=== PATIENT | female | born 1990 | race Caucasian/White ===

== ENCOUNTER → 2020-01-02 10:25 | Outpatient (CLI) | payer BC, SELFPAY ==
[2020-01-02 10:36] LABS: Bacteria Urine None Seen
[2020-01-02 11:19] LABS: Appearance Urine UA CLEAR; Bilirubin Urine UA NEGATIVE (NEGATIVE); Color Urine UA YELLOW; Glucose Urine UA NEGATIVE (Negative); Ketones Urine UA NEGATIVE (NEGATIVE); Leukocyte Esterase Urine UA NEGATIVE (NEGATIVE); Nitrite Urine UA NEGATIVE (Negative); Occult Blood Urine UA NEGATIVE (Negative); Protein Urine UA NEGATIVE (Negative); Specific Gravity Urine UA 1.015 (1.000-1.035); Urobilinogen Urine UA 0.2 E.U./dL (0.2)
[2020-01-02 11:31] LABS: Hematocrit 39.9 % (36-46); Hemoglobin 13.7 g/dL (12.0-16.0); Mean Corpuscular HGB Conc 34.3 % (30-36); Mean Corpuscular Hemoglobin 31.1 PG (26-34); Mean Corpuscular Volume 90.6 fL (80-100); Platelet Count 219 X10^3/uL (150-400); Red Blood Cell Count 4.41 X10^6/uL (4.0-5.2); Red Cell Distribution Width 12.6 % (11.6-14.8); White Blood Cell Count 6.4 X10^3/uL (4.5-11.0)
[2020-01-02 11:58] LABS: Alanine Aminotransferase 18 IU/L (<35); Albumin Globulin Ratio 1.3 (1.0-2.8); Alkaline Phosphatase 46 U/L (38-126); Aspartate Aminotransferase 33 IU/L (14-36); BUN Creatinine Ratio 13.9 (6-22); Bilirubin Total 0.4 mg/dL (0.2-1.3); Blood Urea Nitrogen 11 mg/dL (7-17); Calcium 9.2 mg/dL (8.4-10.2); Carbon Dioxide 27 mmol/L (22-32); Chloride 103 mmol/L (98-107); Estimated Glomerular Filt Rate > 60.0 mL/min (>60); Globulin 3.1 g/dL (1.7-4.1); Glucose 85 mg/dL (70-100); HEMOLYSIS < 15 (0-50); Potassium 4.5 mmol/L (3.4-5.1); Sodium 135 mmol/L (137-145); Total Protein 7.1 g/dL (6.3-8.2)
[2020-01-02 12:04] LABS: Culture Indicated Urine Cult Not Indicated; RBC Urine 0-1/HPF (0-5/HPF); Squamous Epithelial Cell Urine 1-5 /HPF (0-5/HPF); WBC Urine 0-1/HPF (0-5/HPF)
[2020-01-02 12:27] LABS: Thyroid Stimulating Hormone 0.82 uIU/mL (0.47-4.68)
[2020-01-02 13:17] LABS: Pregnancy Test Urine Negative (Negative)
== END ==
PROVIDERS: PCP Nurse Practitioner Family; Referring Provider Nurse Practitioner Family; Visit Provider Nurse Practitioner Family
DX: R10.9 Unspecified abdominal pain (principal); R14.0 Abdominal distension (gaseous); R19.4 Change in bowel habit; R19.5 Other fecal abnormalities
CPT/HCPCS: 36415; 80053; 81001; 81025; 84443; 85027

== ENCOUNTER → 2020-01-03 11:03 | Outpatient (CLI) | payer BC, SELFPAY ==
--- NOTE | 2020-01-03 11:04 | DI.US.S_ITS ---
PROCEDURE: US ABDOMEN COMPLETE INDICATIONS: ABDOMINAL BLOATING, CHANGES IN BOWEL HABITS TECHNIQUE: Real-time scanning was performed of the abdominal and retroperitoneal organs, with image documentation. COMPARISON: None. FINDINGS: Liver: Liver is normal in size and homogeneous in echotexture. Gallbladder: The gallbladder appears normal Biliary ducts: Intrahepatic bile ducts are non-dilated. Extrahepatic bile duct caliber measures 1.8, mm. Normal is 6-7 mm or less in diameter, or 10 mm or less post-cholecystectomy. Pancreas: Visualized portions of the pancreas are sonographically normal. Spleen: Spleen is normal in size and homogeneous in echotexture. Kidneys: Kidneys are normal in size and echotexture. Right kidney measures 11.2 cm long; left kidney measures 11.0 cm long. No hydronephrosis or nephrolithiasis. No solid masses. Aorta: Visualized aorta is normal in caliber at less than 3 cm. Iliacs: Proximal common iliac arteries are normal in caliber at less than 2.5 cm. IVC: Intrahepatic inferior vena cava is patent. Miscellaneous: No free abdominal fluid. IMPRESSION: Normal abdominal ultrasound, source of pain and bloating symptoms is not identified. Depending on the clinical status followup by CT scanning may become necessary. Dictated by: Ez Hamilton M.D. on 01/03/2020 at 12:10 Approved by: Ez Hamilton M.D. on 01/03/2020 at 12:14
== END ==
PROVIDERS: PCP Nurse Practitioner Family; Referring Provider Nurse Practitioner Family; Visit Provider Nurse Practitioner Family
DX: R14.0 Abdominal distension (gaseous) (principal); R10.9 Unspecified abdominal pain; R19.4 Change in bowel habit; R19.5 Other fecal abnormalities
CPT/HCPCS: 36415; 76700; 85651

== ENCOUNTER → 2020-01-03 11:45 | Outpatient (CLI) | payer BC, SELFPAY ==
[2020-01-03 13:22] LABS: Erythrocyte Sedimentation Rate 5 MM/HR (0-20)
== END ==
PROVIDERS: PCP Nurse Practitioner Family; Referring Provider Nurse Practitioner Family; Visit Provider Nurse Practitioner Family
DX: R19.5 Other fecal abnormalities (principal); R19.4 Change in bowel habit; R10.9 Unspecified abdominal pain
CPT/HCPCS: 36415; 85651

== ENCOUNTER → 2021-03-24 07:40 | Outpatient (CLI) | payer BC, SELFPAY ==
--- NOTE | 2021-03-24 07:42 | DI.US.S_ITS ---
PROCEDURE: US OB <= 14 WEEKS FETUS INDICATIONS: Initial US for Dating and Viability please OUTSIDE/PRIOR DATING DATA: Last menstrual period (LMP): January 11, 2021 LMP-based estimated date of delivery (REGGIE): October 18, 2021 First dating scan (date and location): March 24, 2021 Estimated date of delivery (REGGIE) from first dating scan: November 12, 2021 TECHNIQUE: Real-time scanning was performed of the fetus and maternal pelvic organs, with image documentation. Endovaginal scanning was also performed to better visualize the fetus and maternal ovaries. COMPARISON: None. FINDINGS: Embryo: Single intrauterine identified. Yolk sac and pole identified. [place]-rump length measures 0.8 centimeters corresponding to ultrasound estimated gestational age of 6 weeks 5 days. Heart rate: 130 beats per minute. Measurement variability in dating: +/- 4 weeks by LMP, +/- 7 days by mean sac diameter (use before 6 weeks gestation if crown-rump length not able to be measured), +/- 5 days by crown-rump length (up to 8 weeks 6 days gestation), +/- 7 days by crown-rump length (up to 13 weeks 6 days gestation). Maternal organs: Probable 2.7 x 2.7 x 1.8 centimeter right corpus luteal cyst. IMPRESSION: Single living intrauterine with ultrasound estimated gestational age 6 weeks 5 days corresponding to ultrasound REGGIE of November 12, 2021. Dictated by: Desiree Cho MD, PhD on 03/24/2021 at 11:03 Approved by: Desiree Cho MD, PhD on 03/24/2021 at 11:05
== END ==
PROVIDERS: PCP Nurse Practitioner Family; Referring Provider Specialist; Visit Provider Specialist
DX: Z34.01 Encounter for supervision of normal first pregnancy, first trimester (principal); Z3A.01 Less than 8 weeks gestation of pregnancy
CPT/HCPCS: 76801; 76817

== ENCOUNTER → 2021-04-09 09:50 | Outpatient (CLI) | payer BC, SELFPAY ==
[2021-04-09 12:50] LABS: Appearance Urine UA CLEAR; Bilirubin Urine UA NEGATIVE (NEGATIVE); Color Urine UA YELLOW; Glucose Urine UA NEGATIVE (Negative); Ketones Urine UA NEGATIVE (NEGATIVE); Leukocyte Esterase Urine UA NEGATIVE (NEGATIVE); Nitrite Urine UA NEGATIVE (Negative); Occult Blood Urine UA NEGATIVE (Negative); Protein Urine UA NEGATIVE (Negative); Urobilinogen Urine UA 0.2 E.U./dL (0.2)
[2021-04-09 12:52] LABS: pH Urine UA 6.5 (4.5-8.0)
== END ==
PROVIDERS: PCP Nurse Practitioner Family; Visit Provider Specialist
DX: Z34.01 Encounter for supervision of normal first pregnancy, first trimester (principal)
CPT/HCPCS: 81003; 87086

== ENCOUNTER → 2021-04-09 10:38 | Outpatient (CLI) | payer BC, SELFPAY ==
[2021-04-09 12:17] LABS: Add Manual Diff / Slide Review NO; Basophils Absolute Auto 0 /uL (0-100); Basophils Percent Auto 0.2 % (0-2); Eosinophils Absolute Auto 100 /uL (0-450); Eosinophils Percent Auto 0.7 % (2-4); Hematocrit 41.6 % (36-46); Hemoglobin 13.8 g/dL (12.0-16.0); Lymphocytes Absolute Auto 1500 /uL (1100-4500); Mean Corpuscular HGB Conc 33.2 % (30-36); Mean Corpuscular Hemoglobin 30.4 PG (26-34); Mean Corpuscular Volume 91.6 fL (80-100); Monocytes Absolute Auto 500 /uL (0-900); Monocytes Percent Auto 4.4 % (3-14); Neutrophils Absolute Auto 8800 /uL (1500-7000); Neutrophils Percent Auto 80.7 % (50-75); Platelet Count 221 X10^3/uL (150-400); Red Blood Cell Count 4.54 X10^6/uL (4.0-5.2); Red Cell Distribution Width 13.2 % (11.6-14.8); White Blood Cell Count 10.9 X10^3/uL (4.5-11.0)
[2021-04-09 13:17] LABS: Hepatitis B Surface Antigen NEGATIVE s/c (NEGATIVE); Rubella Antibody IgG 19.6 IU/mL (>15)
[2021-04-09 13:29] LABS: HIV 1 & 2 Ab/Ag 4th Gen Combo NEGATIVE (NEGATIVE); Hep C Virus Ab w/Reflex Quant NEGATIVE s/c (NEGATIVE)
[2021-04-10 07:54] LABS: RPR Screen Non Reactive (Non Reactive)
[2021-04-10 08:13] LABS: Varicella IgG Antibody 251 index (Immune >165)
== END ==
PROVIDERS: PCP Nurse Practitioner Family; Referring Provider Specialist; Visit Provider Specialist
DX: Z34.01 Encounter for supervision of normal first pregnancy, first trimester (principal)
CPT/HCPCS: 36415; 80055; 81003; 86787; 86803; 86850; 86900; 86901; 87086; 87389

== ENCOUNTER → 2021-04-14 10:02 | Outpatient (CLI) | payer BC, SELFPAY ==
[2021-04-14 11:33] LABS: Specimen Label KIT
== END ==
PROVIDERS: PCP Nurse Practitioner Family; Referring Provider Specialist; Visit Provider Specialist
DX: Z34.81 Encounter for supervision of other normal pregnancy, first trimester (principal)
CPT/HCPCS: 36415

== ENCOUNTER → 2021-06-11 09:57 | Outpatient (CLI) | payer BC, SELFPAY ==
[2021-06-15 21:30] LABS: AFP Value 39.7 ng/mL (.); Gestational Age Ultrasound (.); Insulin Dep Diabetes No (.); OSBR Risk 1IN 10000 (.); Results Report (.); Test Results *Screen Negative* (.)
== END ==
PROVIDERS: PCP Nurse Practitioner Family; Referring Provider Specialist; Visit Provider Specialist
DX: Z34.02 Encounter for supervision of normal first pregnancy, second trimester (principal); Z3A.18 18 weeks gestation of pregnancy
CPT/HCPCS: 36415; 82105

== ENCOUNTER → 2021-07-07 07:42 | Outpatient (CLI) | payer OTHER, SELFPAY ==
--- NOTE | 2021-07-07 07:43 | DI.US.S_ITS ---
PROCEDURE: US OB >= 14 WEEKS FETUS INDICATIONS: 20 WEEK ANATOMY OUTSIDE/PRIOR DATING DATA: Last menstrual period (LMP): January 11, 2021. LMP-based estimated date of delivery (REGGIE): October 18, 2021. First dating scan (date and location): [facility]; March 24, 2021. Estimated date of delivery (REGGIE) from first dating scan: November 12, 2021. The calculations are made using the ultrasound REGGIE of November 12, 2021. TECHNIQUE: Real-time scanning was performed of the fetus, with image documentation and biometric measurements. COMPARISON: [facility], US, US OB >= 14 WEEKS FETUS, 04/09/2021, 10:00. FINDINGS: General: A single living intrauterine gestation is present. Presentation: Variable. Placenta: Placental position is anterior , without previa. Amniotic fluid index: 12 point cm, normal range is 5-24 cm. Single deepest vertical pocket is 4.2 cm. heart rate: 157 beats per minute. Maternal cervical canal: 3.6 cm long. Normal lower limit is 2.5 cm. biometrics: Biparietal diameter: 5.3 cm Head circumference: 19.7 cm Abdominal circumference: 18 cm Femur length: 3.8 cm Clinically estimated gestational age: 21 weeks, 5 days Composite gestational age from present scan: 22 weeks, 1 day Estimated weight and percentile: 511 g +/-76 g Anatomic survey: Neuro: Ventricles are non-dilated at less than 10 mm. Cisterna magna is normal at 3-11 mm. Cerebellum is normal in size and morphology. Nuchal skin fold: Normal at less than 6 mm between 14-21 weeks gestational age. Face: Nose and lips, facial profile are normal. Spine: No evidence for spina bifida. Heart: 4-chambered heart is present, with normal ventricular outflow tracts. Diaphragm: Diaphragm is intact. Stomach: Left-sided stomach is present. Kidneys: No hydronephrosis. Normal is less than 5 mm in 2nd trimester, less than 7 mm in 3rd trimester. Cord: 3-vessel cord has orthotopic insertion. Bladder: Normal in size. Extremities: All 4 extremities identified. IMPRESSION: Live single intrauterine gestation as detailed above. We strive to produce accurate, complete, and clear reports of imaging services. To assist us in improving patient care, this report was composed using standard report templates and voice recognition software. Therefore, it may contain abnormal punctuation, insertions and/or omissions. Occasional wrong-word or sound-alike substitutions may occur. Though we review the report and make efforts to correct it, we do recommend that the report be read carefully in proper context to recognize any text inaccuracies. Dictated by: Aden Beavers M.D. on 07/07/2021 at 10:07 Approved by: Aden Beavers M.D. on 07/07/2021 at 10:11
== END ==
PROVIDERS: PCP Nurse Practitioner Family; Referring Provider Specialist; Visit Provider Specialist
DX: Z34.02 Encounter for supervision of normal first pregnancy, second trimester (principal); Z3A.22 22 weeks gestation of pregnancy
CPT/HCPCS: 76811

== ENCOUNTER → 2021-08-06 09:39 | Outpatient (CLI) | payer OTHER, SELFPAY ==
[2021-08-06 11:57] LABS: Hematocrit 38.8 % (36-46)
[2021-08-06 12:17] LABS: GTT (PREG) 1 Hour PP 50gm Dose 80 mg/dL (76-139)
== END ==
PROVIDERS: PCP Nurse Practitioner Family; Referring Provider Specialist; Visit Provider Specialist
DX: Z34.82 Encounter for supervision of other normal pregnancy, second trimester (principal); Z3A.26 26 weeks gestation of pregnancy
CPT/HCPCS: 36415; 82950; 85014; 85018

== ENCOUNTER → 2021-10-15 08:45 | Outpatient (CLI) | payer OTHER, SELFPAY ==
[2021-10-16 14:23] LABS: Strep Grp B PCR POS for Grp B Strep
== END ==
PROVIDERS: PCP Nurse Practitioner Family; Visit Provider Specialist
DX: Z34.03 Encounter for supervision of normal first pregnancy, third trimester (principal); Z3A.36 36 weeks gestation of pregnancy
CPT/HCPCS: 87653

== ENCOUNTER 2021-11-02 11:19 | Inpatient (IN) | payer OTHER, SELFPAY ==
[2021-11-02 13:04] VITALS: BP 112/66
[2021-11-02 13:17] LABS: COVID19 -Nasal RAPID Negative (Negative)
[2021-11-02 13:25] LABS: Add Manual Diff / Slide Review NO; Basophils Absolute Auto 100 /uL (0-100); Basophils Percent Auto 0.4 % (0-2); Eosinophils Absolute Auto 0 /uL (0-450); Eosinophils Percent Auto 0.1 % (2-4); Hemoglobin 14.1 g/dL (12.0-16.0); Lymphocytes Absolute Auto 1700 /uL (1100-4500); Lymphocytes Percent Auto 12.7 % (25-40); Mean Corpuscular HGB Conc 33.6 % (30-36); Mean Corpuscular Hemoglobin 30.2 PG (26-34); Mean Corpuscular Volume 90.1 fL (80-100); Monocytes Absolute Auto 600 /uL (0-900); Monocytes Percent Auto 4.2 % (3-14); Neutrophils Absolute Auto 10900 /uL (1500-7000); Neutrophils Percent Auto 82.6 % (50-75); Platelet Count 138 X10^3/uL (150-400); Red Blood Cell Count 4.66 X10^6/uL (4.0-5.2); Red Cell Distribution Width 12.9 % (11.6-14.8); White Blood Cell Count 13.2 X10^3/uL (4.5-11.0)
--- NOTE | 2021-11-02 13:28 | PM.OBHP.1 ---
OB HPI Date/Time Date of admission: 11/02/21 Date Patient Seen: 11/02/21 Time Patient Seen: 13:28 History of Present Condition Chief complaint: Observation of Labor : 1 Para: 0 Estimated Date of Delivery: 11/12/21 Estimated Gestational Age (weeks): 38 Narrative: Yisel Quintana is a 31 year old female admitted in active labor History of Present care: good care, initiated at week # (9), number of visits (11) and pounds weight gain (29) Dating criteria: LMP confirmed by 1st trimester US Obstetrical complications: none Medical complications: none Preadmission Labs Blood type: O (+) positive -: Antibody screen: negative, GBS status: positive, HBsAG: negative, HIV: negative and RPR/VDLR: negative -: Chlamydia screen: not detected and Gonorrhea screen: not detected -: Rubella: immune and Varicella: immune HCAB: negative Cell-free DNA: Normal male Fasting blood glucose: 80 Evaluation Evaluation Baseline heart rate: 130 Variability: Moderate (11-25) monitor accelerations: Present Monitor Decelerations: Absent Contraction Frequency (minutes): 3 Uterine Contraction Intensity: Strong/Firm Category of Tracing: Reactive Status: Category l Dilation (cm): 3 Effacement (%): 80 station: 0 PFSH Medical History (Updated 09/24/21 @ 08:54 by Odette Hernandes MD) Abdominal bloating (10/2019) Abdominal pain (10/2019) Change in bowel habits (10/2019) Mucous in stools (10/2019) Surgical History (Updated 05/17/19 @ 15:43 by Radha Drake) Anesthesia [place] teeth removed (~2016) Family History (Updated 04/07/21 @ 13:18 by Lisseth Silvestre RN) Father History of heart disease Mental health problem H/O heart bypass surgery Depression Grandmother Mental health problem Alzheimer disease Grandfather Myocardial infarction Grandmother Stroke Grandfather Family estrangement History of ETOH abuse Mother History of ETOH abuse Family/Other Alzheimer disease Brother Abdominal obesity Acute alcohol abuse Brother No problems noted. Social History marital status: number of children: 0 household members: spouse lives independently: Yes pets and animals: Yes (Dog x 1) education level: college (Ass. Degree ) occupational status: employed ([employer]) current occupational exposures/hazards: Yes special jose needs: No Smoking Status: Never smoker second hand exposure: No alcohol intake: former (pre- : 1 glass of wine 1-2x/week) substance use type: does not use and marijuana (H/O vape, 1-2x/month) Type(s) of exercise: aerobic, regular exercise and weight lifting Meds Home Medications and Allergies Home Medications Medication Instructions Recorded Confirmed Type prenat.vits,tiffany,mub-[id number] 1 tab PO DAILY 03/11/21 11/02/21 History Allergies Allergy/AdvReac Type Severity Reaction Status Date / Time No Known Drug Allergies Allergy Verified 04/07/21 12:57 Review of Systems Review of Systems Narrative: Contractions began at 9:00 a.m.. No leakage of fluid. Good movement. No headaches, scotomata, epigastric pain. OB Exam Narrative Exam Narrative: Blood pressure 112/66, pulse of 86, temperature 98.2? HEENT exam within normal limits. Lungs are clear to auscultation percussion. Heart is regular rate and rhythm no S3-S4 murmurs. Abdomen is gravid. Fetus is vertex. Extremities without edema and nontender. Objective Labs Result Diagrams: 11/02/21 13:10 Labs: Laboratory Results - last 24 hr 11/02/21 11/02/21 12:49 13:10 WBC 13.2 H RBC 4.66 Hgb 14.1 Hct 42.0 MCV 90.1 MCH 30.2 MCHC 33.6 RDW 12.9 Plt Count 138 L Neut % (Auto) 82.6 H Lymph % (Auto) 12.7 L [place] % (Auto) 4.2 Eos % (Auto) 0.1 L Baso % (Auto) 0.4 Neut # (Auto) 37818 H Lymph # (Auto) 1700 [place] # (Auto) 600 Eos # (Auto) 0 Baso # (Auto) 100 SARS-CoV-2 (PCR) Negative Assessment and Plan Assessment and Plan Assessment and Plan narrative: 38 week gestation in early labor. Anticipate vaginal delivery.
[2021-11-02] MEDS: PENICILLIN G POTASSIUM 5,000,000 UNIT in DEXTROSE 5% IN WATER 250 ML IV (14:21)
[2021-11-02] MEDS: LACTATED RINGERS 1,000 ML 100 ML IV (14:21)
[2021-11-02] MEDS: ONDANSETRON 4 MG/2 ML INJ IV (14:48)
[2021-11-02] MEDS: fentaNYL 100 MCG/2 ML INJ IV (17:46)
[2021-11-02] MEDS: PENICILLIN G POTASSIUM 3,000,000 UNIT/50 ML FROZ.PIGGY 100 UNIT IV (18:39)
--- NOTE | 2021-11-02 20:36 | PM.OBPRVD ---
Labor & Delivery Delivery date: 11/02/21 Intrapartal Events: None Cervical ripening method: none Induction method: none Delivery monitor: external FHT Route of delivery: L&D Laceration Description: Perineal - 2nd Degree Delivery repair: chromic (3 0) Estimated blood loss (mL): 300 Anesthesia Type: Local Narrative: Patient arrived on Labor and delivery in active labor. heart tones category 1 throughout labor. Just prior to delivery the bulging bag of water was ruptured to reveal moderate meconium staining. The infant delivered spontaneously, over an intact perineum. A nuchal and body cord was released and the infant placed on maternal abdomen. After the cord stopped pulsating the cord was clamped, cut, and cord bloods obtained. The placenta delivered spontaneously, intact, with 3 vessels. There were no cervical or vaginal tears. A second-degree perineal tear was repaired with 3 0 chromic suture in the usual 2 layer fashion. Bleeding was controlled with IV Pitocin. Estimated blood loss 300 cc. Both infant mother doing well. [place] Baby 1: gender: Male Presentation: vertex Position: Right Occiput Anterior Placenta delivery description: Spontaneous Cord Vessel Description: 3 Vessels, Nuchal Cord and Around Body x1 score (1 min): 8 score (5 min): 9 Plan for aftercare: Routine care
[2021-11-02] MEDS: DERMOPLAST SPRAY 20% 60 ML 1 SPRAY TOP (21:36)
[2021-11-02] MEDS: ACETAMINOPHEN 325 MG TABLET 650 MG PO (21:36)
[2021-11-03] MEDS: ACETAMINOPHEN 325 MG TABLET 650 MG PO ×3 (03:20→17:25)
[2021-11-03] MEDS: IBUPROFEN 600 MG TABLET PO ×3 (03:20→17:27)
[2021-11-03 05:01] LABS: Add Manual Diff / Slide Review NO; Basophils Absolute Auto 0 /uL (0-100); Basophils Percent Auto 0.1 % (0-2); Eosinophils Absolute Auto 0 /uL (0-450); Hematocrit 37.4 % (36-46); Hemoglobin 12.5 g/dL (12.0-16.0); Lymphocytes Absolute Auto 1600 /uL (1100-4500); Lymphocytes Percent Auto 9.2 % (25-40); Mean Corpuscular HGB Conc 33.4 % (30-36); Mean Corpuscular Hemoglobin 29.9 PG (26-34); Mean Corpuscular Volume 89.5 fL (80-100); Monocytes Absolute Auto 1000 /uL (0-900); Monocytes Percent Auto 5.6 % (3-14); Neutrophils Absolute Auto 15200 /uL (1500-7000); Neutrophils Percent Auto 85.1 % (50-75); Platelet Count 122 X10^3/uL (150-400); Red Blood Cell Count 4.18 X10^6/uL (4.0-5.2); Red Cell Distribution Width 13.4 % (11.6-14.8); White Blood Cell Count 17.9 X10^3/uL (4.5-11.0)
--- NOTE | 2021-11-03 12:48 | P.DS_ITS ---
Discharge Providers Provider Date of admission: 11/02/21 11:19 Discharge Date: 11/03/21 Primary care physician: LI Bond Consults: 11/02/21 12:49 Consult to Anesthesiology Urgent Comment: Consulting Provider: Anesthesiologist Reason for consultation: Epidural Has provider been notified: No 11/03/21 20:34 Consult to [employer]ill Operator Routine Comment: Discharge provider: Odette Hernandes MD Summary Hospital Course Date Patient Seen: 11/03/21 Time Patient Seen: 12:49 Diagnoses: spontaneous vaginal delivery Hospital Course: Patient arrived on Labor and delivery in active labor. She received 1 dose of fentanyl for pain. She had a spontaneous vaginal delivery With repair of a second-degree perineal tear. Patient is ambulatory. Urinating well. Mild lochia. Pain under control. Breast-feeding going well. Peripartum Data Delivery Method: Natural Vaginal Laceration Description: Perineal - 2nd Degree Procedures: Spontaneous vaginal delivery with repair of second-degree tear complications: none [place] 1: Gender: Male Disposition of : home Discharge Diagnosis (1) Normal spontaneous vaginal delivery: Status: Acute Status at Discharge Cognitive/behavioral status at discharge: oriented Functional status at discharge: independent ambulation Overall status at discharge: patient is progressing back to baseline Time Spent with Patient Time attestation: Total time spent providing and/or coordinating discharge services: Time spent: Less than 30 minutes Objective Labs Result Diagrams: 11/03/21 04:20 Labs: Laboratory Results - last 24 hr 11/02/21 11/02/21 11/02/21 12:49 13:10 13:10 WBC 13.2 H RBC 4.66 Hgb 14.1 Hct 42.0 MCV 90.1 MCH 30.2 MCHC 33.6 RDW 12.9 Plt Count 138 L Neut % (Auto) 82.6 H Lymph % (Auto) 12.7 L [place] % (Auto) 4.2 Eos % (Auto) 0.1 L Baso % (Auto) 0.4 Neut # (Auto) 07390 H Lymph # (Auto) 1700 [place] # (Auto) 600 Eos # (Auto) 0 Baso # (Auto) 100 SARS-CoV-2 (PCR) Negative Blood Type O Positive Antibody Screen Negative 11/03/21 04:20 WBC 17.9 H RBC 4.18 Hgb 12.5 Hct 37.4 MCV 89.5 MCH 29.9 MCHC 33.4 RDW 13.4 Plt Count 122 L Neut % (Auto) 85.1 H Lymph % (Auto) 9.2 L [place] % (Auto) 5.6 Eos % (Auto) 0.0 L Baso % (Auto) 0.1 Neut # (Auto) 10661 H Lymph # (Auto) 1600 [place] # (Auto) 1000 H Eos # (Auto) 0 Baso # (Auto) 0 SARS-CoV-2 (PCR) Blood Type Antibody Screen Exam Vital Signs (past 8 hours): blood pressure 106/73, pulse 78, temperature 98.7? Narrative Exam Narrative: Abdomen is soft, nontender. Uterus is firm, U -2, nontender. Perineal tear repair is intact. Mild lochia. Extremities with trace edema and nontender. Patient is Rh positive, rubella immune, received Tdap in the 3rd trimester. Discharge Plan Discharge Plan Patient Disposition: Home Discharge orders & Medications Prescriptions: Continued prenat.vits,tiffany,[id number] Tablet 1 tab PO DAILY 0RF Follow up/Referrals: Melinda Centeno ARNP [Primary Care Provider] - Odette Hernandes MD [Physician] - 1 Month Diet/Activity/Treatments Diet: Regular Activity: nothing in vagina for 6 weeks Skin/Wound/Dressing Care Report to your healthcare provider any signs of infection, such as:: chills, fever and increased pain Discharge Data Primary Care Provider: Melinda Centeno
[2021-11-03 17:25] VITALS: TEMP 37.1
[2021-11-03 17:27] VITALS: TEMP 37.1
[2021-11-03 19:55] VITALS: BP 118/83; PULSE 73; RESP 16; TEMP 37.1
== END 2021-11-03 20:45 | disposition home or self-care (01) | DRG 807 ==
PROVIDERS: Admitting Provider Specialist; PCP Nurse Practitioner Family; Referring Provider Specialist; Visit Provider Specialist
DX: O99.824 Streptococcus B carrier state complicating childbirth (principal); Z37.0 Single live birth; Z3A.38 38 weeks gestation of pregnancy; O77.0 Labor and delivery complicated by meconium in amniotic fluid; O70.1 Second degree perineal laceration during delivery; O69.81X0 Labor and delivery complicated by cord around neck, without compression, not applicable or unspecified; Z20.822 Contact with and (suspected) exposure to COVID-19
CPT/HCPCS: 36415; 59050; 59400; 85025; 86850; 86900; 86901; 87635; C9803; G0379; J2405; J2540; J3010

== ENCOUNTER → 2022-01-06 07:12 | Outpatient (CLI) | payer OTHER, SELFPAY | PROVIDERS: PCP Nurse Practitioner Family; Visit Provider Nurse Practitioner | DX: J02.9 Acute pharyngitis, unspecified (principal) | CPT/HCPCS: 87070 ==

== ENCOUNTER → 2022-07-21 12:03 | Outpatient (CLI) | payer OTHER, SELFPAY ==
[2022-07-21 13:34] LABS: Influenza A - CEPHEID Flu A NEGATIVE (NEGATIVE); Influenza B - CEPHEID Flu B NEGATIVE (NEGATIVE); Respiratory Syncytial Virus Negative (Negative)
[2022-07-21 13:38] LABS: COVID-19 CEPHEID 4-PLEX PCR Negative (Negative)
== END ==
PROVIDERS: PCP Family Medicine; Visit Provider Registered Nurse
DX: J02.9 Acute pharyngitis, unspecified (principal); Z20.822 Contact with and (suspected) exposure to COVID-19
CPT/HCPCS: 0241U; 87070; 87077; 87147

== ENCOUNTER → 2023-08-29 08:06 | Outpatient (CLI) | payer OTHER, SELFPAY ==
[2023-08-29 09:09] LABS: Influenza A - CEPHEID Flu A NEGATIVE (NEGATIVE); Influenza B - CEPHEID Flu B NEGATIVE (NEGATIVE); Respiratory Syncytial Virus Negative (Negative)
[2023-08-29 09:11] LABS: COVID-19 CEPHEID 4-PLEX PCR Negative (Negative)
== END ==
PROVIDERS: PCP Family Medicine; Visit Provider Nurse Practitioner Family
DX: J02.9 Acute pharyngitis, unspecified (principal); Z20.828 Contact with and (suspected) exposure to other viral communicable diseases
CPT/HCPCS: 0241U; 87070; 87147

== ENCOUNTER → 2024-01-16 13:06 | Outpatient (CLI) | payer OTHER, SELFPAY ==
[2024-01-16 13:48] LABS: Add Manual Diff / Slide Review NO; Basophils Absolute Auto 0 /uL (0-100); Basophils Percent Auto 0.2 % (0-2); Eosinophils Absolute Auto 100 /uL (0-450); Eosinophils Percent Auto 0.7 % (2-4); Hematocrit 38.6 % (36-46); Hemoglobin 12.9 g/dL (12.0-16.0); Lymphocytes Absolute Auto 1400 /uL (1100-4500); Lymphocytes Percent Auto 15.6 % (25-40); Mean Corpuscular HGB Conc 33.3 % (30-36); Mean Corpuscular Volume 90.1 fL (80-100); Monocytes Absolute Auto 500 /uL (0-900); Monocytes Percent Auto 5.4 % (3-14); Neutrophils Absolute Auto 7000 /uL (1500-7000); Neutrophils Percent Auto 78.1 % (50-75); Platelet Count 186 X10^3/uL (150-400); Red Blood Cell Count 4.29 X10^6/uL (4.0-5.2); Red Cell Distribution Width 13.9 % (11.6-14.8); White Blood Cell Count 8.9 X10^3/uL (4.5-11.0)
[2024-01-16 14:14] LABS: Natera Collection Specimen Collected
[2024-01-16 17:24] LABS: Hepatitis B Surface Antigen NEGATIVE s/c (NEGATIVE); Rubella Antibody IgG 17.1 IU/mL (>15)
[2024-01-16 17:44] LABS: HIV 1 & 2 Ab/Ag 4th Gen Combo NEGATIVE (NEGATIVE); Hep C Virus Ab w/Reflex Quant NEGATIVE s/c (NEGATIVE)
[2024-01-17 05:12] LABS: RPR Screen Non Reactive (Non Reactive)
[2024-01-17 11:36] LABS: Varicella IgG Antibody 184 index (Immune >165)
== END ==
PROVIDERS: PCP Family Medicine; Referring Provider Obstetrics & Gynecology; Visit Provider Obstetrics & Gynecology
DX: Z34.81 Encounter for supervision of other normal pregnancy, first trimester (principal); Z3A.10 10 weeks gestation of pregnancy
CPT/HCPCS: 36415; 80055; 86787; 86803; 86850; 86900; 86901; 87077; 87086; 87147; 87389

== ENCOUNTER → 2024-03-06 11:23 | Outpatient (CLI) | payer OTHER, SELFPAY | PROVIDERS: Obstetrics & Gynecology; PCP Family Medicine; Referring Provider Family Medicine; Visit Provider Family Medicine | DX: Z34.82 Encounter for supervision of other normal pregnancy, second trimester (principal); Z3A.17 17 weeks gestation of pregnancy | CPT/HCPCS: 36415; 82105 ==

== ENCOUNTER → 2024-03-30 11:00 | Outpatient (CLI) | payer OTHER, SELFPAY ==
--- NOTE | 2024-03-30 11:01 | DI.US.S_ITS ---
PROCEDURE: US OB >= 14 WEEKS FETUS INDICATIONS: 20 Week Anatomy Scan OUTSIDE/PRIOR DATING DATA: Last menstrual period (LMP): 11/14/2023. LMP-based estimated date of delivery (REGGIE): 08/10/2024. First dating scan (date and location): 01/05/2024. Estimated date of delivery (REGGIE) from first dating scan: 08/10/2024. The calculations are made using the clinical REGGIE of 08/10/2024. TECHNIQUE: Real-time scanning was performed of the fetus, with image documentation and biometric measurements. Endovaginal scanning: Not performed COMPARISON: [facility], , OB >= 14 WEEKS FETUS, 10/22/2021, 9:06. FINDINGS: General: A single living intrauterine gestation is present. Presentation: Vertex. Placenta: Placental position is anterior , without previa. Amniotic fluid index: 19 cm, normal range is 5-24 cm. Single deepest vertical pocket is 5.7 cm. heart rate: 147 beats per minute. Maternal cervical canal: 4.0 cm long. Normal lower limit is 2.5 cm. biometrics: Biparietal diameter: 5.1 centimeter, 21 week 2 days Head circumference: 17.6 centimeters, 20 weeks 1 day Abdominal circumference: 15.8 centimeters, 20 weeks 6 days Femur length: 3.5 centimeters, 21 weeks 0 days Clinically estimated gestational age: 21 weeks 0 days Composite gestational age from present scan: 20 weeks 6 days Estimated weight and percentile: 382 grams, 37th percentile Anatomic survey: Neuro: Ventricles are non-dilated at less than 10 mm. Cisterna magna is normal at 3-11 mm. Cerebellum is normal in size and morphology. Nuchal skin fold: Normal at less than 6 mm between 14-21 weeks gestational age. Face: Nose and lips, facial profile are normal. Spine: No evidence for spina bifida. Heart: 4-chambered heart is present, with normal ventricular outflow tracts. Diaphragm: Diaphragm is intact. Stomach: Left-sided stomach is present. Kidneys: No hydronephrosis. Normal is less than 5 mm in 2nd trimester, less than 7 mm in 3rd trimester. Cord: 3-vessel cord has orthotopic insertion. Bladder: Normal in size. Extremities: All 4 extremities identified. IMPRESSION: Single living intrauterine at 21 weeks 0 days, REGGIE of 08/10/2024. Estimated weight of 382 grams, 37th percentile. Normal anatomy survey. We strive to produce accurate, complete, and clear reports of imaging services. To assist us in improving patient care, this report was composed using standard report templates and voice recognition software. Therefore, it may contain abnormal punctuation, insertions and/or omissions. Occasional wrong-word or sound-alike substitutions may occur. Though we review the report and make efforts to correct it, we do recommend that the report be read carefully in proper context to recognize any text inaccuracies. Dictated by: Barrie Silva M.D. on 04/04/2024 at 9:55 Approved by: Barrie Silva M.D. on 04/04/2024 at 9:58
== END ==
PROVIDERS: PCP Family Medicine; Referring Provider Obstetrics & Gynecology; Visit Provider Obstetrics & Gynecology
DX: Z34.92 Encounter for supervision of normal pregnancy, unspecified, second trimester (principal); Z3A.21 21 weeks gestation of pregnancy
CPT/HCPCS: 76811

== ENCOUNTER → 2024-04-26 11:10 | Outpatient (CLI) | payer OTHER, SELFPAY ==
[2024-04-26 12:47] LABS: Hematocrit 38.8 % (36-46)
[2024-04-26 13:05] LABS: GTT (PREG) 1 Hour PP 50gm Dose 122 mg/dL (76-139)
== END ==
PROVIDERS: PCP Family Medicine; Referring Provider Obstetrics & Gynecology; Visit Provider Obstetrics & Gynecology
DX: Z3A.26 26 weeks gestation of pregnancy (principal); Z34.82 Encounter for supervision of other normal pregnancy, second trimester
CPT/HCPCS: 36415; 82950; 85014; 85018

== ENCOUNTER 2024-08-03 21:17 | Inpatient (IN) | payer OTHER, SELFPAY ==
[2024-08-03 23:17] LABS: Add Manual Diff / Slide Review NO; Basophils Absolute Auto 0 /uL (0-100); Basophils Percent Auto 0.1 % (0-2); Eosinophils Absolute Auto 100 /uL (0-450); Eosinophils Percent Auto 0.5 % (2-4); Hematocrit 40.2 % (36-46); Hemoglobin 13.2 g/dL (12.0-16.0); Lymphocytes Absolute Auto 2200 /uL (1100-4500); Lymphocytes Percent Auto 15.7 % (25-40); Mean Corpuscular HGB Conc 32.8 % (30-36); Mean Corpuscular Hemoglobin 29.7 PG (26-34); Mean Corpuscular Volume 90.6 fL (80-100); Monocytes Absolute Auto 700 /uL (0-900); Monocytes Percent Auto 4.8 % (3-14); Neutrophils Absolute Auto 11300 /uL (1500-7000); Neutrophils Percent Auto 78.9 % (50-75); Platelet Count 162 X10^3/uL (150-400); Red Blood Cell Count 4.44 X10^6/uL (4.0-5.2); White Blood Cell Count 14.3 X10^3/uL (4.5-11.0)
[2024-08-04] MEDS: LACTATED RINGERS 1,000 ML 100 ML IV ×2 (00:20→09:02)
[2024-08-04] MEDS: AMPICILLIN 2,000 MG in SODIUM CHLORIDE 0.9% 100 ML 200 MG IV (00:20)
[2024-08-04] MEDS: AMPICILLIN 1,000 MG in SODIUM CHLORIDE 0.9% 100 ML 200 MG IV ×2 (05:00→09:03)
[2024-08-04 07:04] VITALS: BP 101/62
--- NOTE | 2024-08-04 08:19 | P.HPOB_ITS ---
OB HPI Date/Time Date of admission: 08/03/24 Date Patient Seen: 08/04/24 Time Patient Seen: 08:20 History of Present Condition Chief complaint: Labor REGGIE Calculator 2 Estimated Delivery Date Method Current WG Current Estimate 08/10/24 LMP (Certain) 39w 1d Other Estimates 08/10/24 Ultrasound #1 39w 1d Estimated Gestational Age (weeks): 39+1 : 2 Para: 1 care: good care, initiated at week # (8), number of visits (12) and pounds weight gain (33) Dating criteria OB: LMP confirmed by 1st trimester US Ultrasounds: normal 1st trimester US and normal mid trimester US Obstetrical complications: none Medical complications OB: none Preadmission Labs Last OB Lab Results: 2 Blood Type O Positive 08/03/24 22:34 Antibody Screen Negative 08/03/24 22:34 Hct 40.2 % (36-46) 08/03/24 22:34 Hgb 13.2 g/dL (12.0-16.0) 08/03/24 22:34 Hep Bs Antigen Negative s/c (NEGATIVE) 01/16/24 13:14 Hepatitis C Antibody Negative s/c (NEGATIVE) 01/16/24 13:14 Rubella Antibody 17.1 IU/mL (>15) 01/16/24 13:14 VZV IgG Antibody 184 index (Immune >165) 01/16/24 13:14 Glucose 1 Hr 50 gm 122 mg/dL (76-139) 04/26/24 12:24 Group B Strep (PCR) Pos for grp b strep H 10/15/21 08:45 -: Chlamydia screen: negative, Gonorrhea screen: negative and Urine: negative -: PAP smear: Normal Genetic Screens: Cell-free DNA: Normal (low risk male) and Alpha-fetoprotein: Normal External Labs -: Urine: negative Prior (ies) Past Pregnancies Del. Date GA/Weeks Labor Lgth Wt Sex Route Outcome Anesthesia Place Delv Breastfeed Preg Comp Name 11/02/21 38+ 11 6 lb 14 oz Male vaginal live - full term none IH 1 year none Hardeep Hx # Term Pregnancies: 1 Hx # Pregnancies: 0 Number of Living Children: 1 Multiple births: 0 Spontaneous abortions: 0 Ectopic pregnancies: 0 Elective abortions: 0 Evaluation Evaluation Baseline heart rate: 140 Variability: Moderate (11-25) monitor accelerations: Present Monitor Decelerations: Absent Contraction Frequency (minutes): 7 Uterine Contraction Intensity: Moderate Status: Category l Dilation (cm): 6 Effacement (%): 95 station: 0 Position of cervix: mid Consistency: soft [facility] Medical History (Updated 07/30/24 @ 13:34 by Sveta Hendrix MD) Normal spontaneous vaginal delivery (~11/02/21) Abdominal bloating (10/2019) Mucous in stools (10/2019) Change in bowel habits (10/2019) Abdominal pain (10/2019) Surgical History Anesthesia [place] teeth removed (~2016) Family History (Updated 12/12/23 @ 13:09 by Yuki Alonso RN) Father History of heart disease Mental health problem H/O heart bypass surgery Depression Grandmother Alzheimer disease Cardiac arrhythmia Grandfather Myocardial infarction Grandmother Stroke Grandfather Family estrangement History of ETOH abuse Mother History of ETOH abuse Family/Other Alzheimer disease Brother Abdominal obesity Acute alcohol abuse Sleep apnea Social History marital status: number of children: 1 household members: spouse lives independently: Yes caregiver/support person: Yes housing: house pets and animals: Yes (Dog) education level: college (Associate's Degree ) occupational status: employed ([employer]) current occupational exposures/hazards: No special jose needs: No travel history: over 6 months ago seatbelt use: always helmet use: Yes water heater temp set < 120 deg: Yes working smoke detector in home: Yes fire extinguisher in home: Yes carbon monox detector in home: Yes firearms in home: No do you feel safe at home: Yes Smoking Status: Never smoker second hand exposure: No alcohol intake: former (rarely when not ) substance use type: does not use during the past year weight has: remained stable well-balanced diet: daily or most days daily servings fruits/ve or more times/day caffeine: Yes (AM cup coffee) Type(s) of exercise: aerobic, regular exercise and weight lifting Meds Home Medications and Allergies Home Medications Medication Instructions Recorded Confirmed Type prenat.vits,tiffany,bru-vxjf-uzuyb 1 tab PO DAILY 03/11/21 08/02/24 History cholecalciferol (vitamin D3) 125 125 mcg PO DAILY 12/12/23 08/02/24 History mcg (5,000 unit) capsule iodine 150 mcg tablet (Kelp mcg PO 12/12/23 08/02/24 History (iodine)) ondansetron 4 mg disintegrating 4 mg PO Q6H PRN nausea and 01/05/24 08/02/24 Rx tablet vomiting #30 tabs [id number] antigen-[id number] 0.5 ml IM ONCE #1 ea 06/14/24 08/02/24 Rx adjuvant(PF) 120 mcg/0.5 mL IM suspension, kit Allergies Allergy/AdvReac Type Severity Reaction Status Date / Time No Known Drug Allergies Allergy Verified 08/02/24 12:21 OB Exam Narrative Exam Narrative: Generally: Patient is standing and room, breathing through contractions, no acute distress Fundal height: 40 cm Estimated weight: 7-1/2 lb Extremities: Trace edema, negative [place] Objective Labs 08/03/24 22:34 Labs: Laboratory Results - last 24 hr 08/03/24 22:34 WBC 14.3 H RBC 4.44 Hgb 13.2 Hct 40.2 MCV 90.6 MCH 29.7 MCHC 32.8 RDW 13.0 Plt Count 162 Neut % (Auto) 78.9 H Lymph % (Auto) 15.7 L [place] % (Auto) 4.8 Eos % (Auto) 0.5 L Baso % (Auto) 0.1 Neut # (Auto) 24366 H Lymph # (Auto) 2200 [place] # (Auto) 700 Eos # (Auto) 100 Baso # (Auto) 0 Blood Type O Positive Antibody Screen Negative Assessment and Plan Assessment and Plan Assessment and Plan narrative: Assessment: 34-year-old 2 para 1 at 39-,1/7 weeks gestation in early, active labor Contractions spaced out a bit overnight GBS bacteriuria, status post 2 doses of penicillin Plan: Artificial rupture of membranes with copious clear amniotic fluid Expected management to spontaneous vaginal delivery Time-Based Coding :: [TOTAL MINUTES] spent with patient and on the chart (including review of chart, obtaining history, exam, reviewing outside data, placing orders, documenting exam and treatment plan, and counseling patient) on [DATE].
[2024-08-04] MEDS: fentaNYL 100 MCG/2 ML INJ 50 MCG IV (10:20)
--- NOTE | 2024-08-04 13:29 | PM.OBPRVD ---
Labor & Delivery Delivery date: 08/04/24 Delivery Time: 12:38 Cervical ripening method: none Induction method: none Delivery augmentation: rupture of membranes Delivery monitor: external FHT and external uterine Route of delivery: L&D Laceration Description: Perineal - 2nd Degree Delivery repair: vicryl and chromic Quantitative Blood Loss: 503 Anesthesia Type: Local (for repair only) and None (nitrous oxide) Complications: None Narrative: Patient complete and pushed at 3 contractions. At 1238, a live male infant delivered spontaneously over an intact perineum. No nuchal cord. The remainder of the body delivered without difficulty and was placed on mom's abdomen. Pitocin was given in the IVF's. The cord was double clamped and cut once it stopped pulsing. Cord bloods were obtained. The placenta delivered intact with a 3-vessel cord at 1253. Fundus was massaged to firm. The perineum and vagina were inspected and a second degree perineal laceration was noted. This was repaired in the usual fashion in 2 layers. Hemostasis was achieved. Apgars 8 at 1 minute and 9 at 5 minutes. BW 7#10.8 oz. Local analgesia only for the repair. . Mom and stable to recovery. Baby 1: gender: Male Presentation: vertex Position: Right Occiput Anterior Placenta delivery description: Spontaneous Cord Vessel Description: 3 Vessels and Clamped/Cut (after the cord stopped pulsing. ) score (1 min): 8 score (5 min): 9 weight: 7 lb 10.8 oz Plan for aftercare: Routine care
[2024-08-04] MEDS: IBUPROFEN 600 MG TABLET PO ×2 (13:56→21:06)
[2024-08-04] MEDS: DERMOPLAST SPRAY 20% 60 ML 1 SPRAY TOP (15:01)
[2024-08-04] MEDS: WITCH HAZEL/GLYCERIN PADS 1 EACH TOP (15:01)
[2024-08-04] MEDS: ACETAMINOPHEN 325 MG TABLET 650 MG PO ×2 (15:01→21:07)
[2024-08-05] MEDS: ACETAMINOPHEN 325 MG TABLET 650 MG PO ×2 (03:02→08:32)
[2024-08-05] MEDS: IBUPROFEN 600 MG TABLET PO ×2 (03:03→08:33)
[2024-08-05 06:01] LABS: Hematocrit 33.9 % (36-46); Hemoglobin 11.3 g/dL (12.0-16.0)
[2024-08-05 08:30] VITALS: BP 114/72; PULSE 80; RESP 16; TEMP 37.5
--- NOTE | 2024-08-05 10:10 | PM.OBPN.1 ---
Subjective - OB Subjective Patient comments: no complaints baby status: doing well [place] feeding status: exclusively breast feeding Narrative: 34yo PPD1 s/p of LBMI, doing well. NAEON per RN, pt ambulating and voiding without difficulty. Desires dc to home today if cleared per peds Date Patient Seen: 08/05/24 Time Patient Seen: 10:12 Exam Vital Signs (past 8 hours): maternal VSS/afebrile, reviewed in OBIX Const General: cooperative, healthy appearing and comfortable Nutritional Appearance: average body habitus Orientation: alert, awake and oriented x3 Limitations: mental status not altered Resp Effort & Inspection: normal respiratory effort and able to speak in complete sentences Cardio Rate: regular rate Pulses: normal peripheral pulses GI Inspection: normal to inspection Other: soft, non-tender, fundus firm << umb Other: deferred Skin General: no rashes or lesions noted Neuro General: patient alert, patient awake and patient oriented x3 Extrem General: normal to inspection Psych Mental Status: mental status grossly normal Judgment: judgment good Objective Labs 08/05/24 05:50 Labs: Laboratory Results - last 24 hr 08/05/24 05:50 Hgb 11.3 L Hct 33.9 L Assessment & Plan Plan day: 1 plan OB: discharge home Comments: routine precautions reviewed declines immediate contraception, planned partner vasectomy, risk of escape ovulation reviewed f/u in office 4-6wks routine Time-Based Coding :: [TOTAL MINUTES] spent with patient and on the chart (including review of chart, obtaining history, exam, reviewing outside data, placing orders, documenting exam and treatment plan, and counseling patient) on [DATE].
== END 2024-08-05 12:20 | disposition home or self-care (01) | DRG 807 ==
PROVIDERS: Admitting Provider Obstetrics & Gynecology; PCP Family Medicine; Referring Provider Obstetrics & Gynecology; Visit Provider Obstetrics & Gynecology
DX: O99.824 Streptococcus B carrier state complicating childbirth (principal); Z37.0 Single live birth; Z3A.39 39 weeks gestation of pregnancy; O70.1 Second degree perineal laceration during delivery
CPT/HCPCS: 36415; 59050; 85014; 85018; 85025; 86850; 86900; 86901; G0378; G0379; J0290; J3010

== ENCOUNTER → 2025-04-30 15:17 | Outpatient (CLI) | payer OTHER, SELFPAY ==
[2025-04-30 16:47] LABS: Add Manual Diff / Slide Review NO; Hematocrit 41.0 % (36-46); Hemoglobin 13.7 g/dL (12.0-16.0); Lymphocytes Absolute Auto 2400 /uL (1100-4500); Mean Corpuscular HGB Conc 33.5 % (30-36); Mean Corpuscular Hemoglobin 29.3 PG (26-34); Mean Corpuscular Volume 87.5 fL (80-100); Platelet Count 236 X10^3/uL (150-400)
[2025-04-30 17:20] LABS: Alanine Aminotransferase 13 IU/L (<35); Albumin 4.6 g/dL (3.5-5.0); Albumin Globulin Ratio 1.6 (1.0-2.8); Alkaline Phosphatase 88 U/L (38-126); Blood Urea Nitrogen 21 mg/dL (7-17); Calcium 9.2 mg/dL (8.4-10.2); Carbon Dioxide 25 mmol/L (22-32); Chloride 103 mmol/L (98-107); Estimated Glomerular Filt Rate > 60 mL/min (>60); Globulin 2.8 g/dL (1.7-4.1); Glucose 90 mg/dL (70-99); HEMOLYSIS < 15 (0-50); Potassium 4.3 mmol/L (3.4-5.1); Sodium 137 mmol/L (137-145); Total Protein 7.4 g/dL (6.3-8.2)
== END ==
PROVIDERS: PCP Family Medicine; Referring Provider Physician Assistant; Visit Provider Physician Assistant
DX: O26.813 Pregnancy related exhaustion and fatigue, third trimester (principal); R42 Dizziness and giddiness; N92.1 Excessive and frequent menstruation with irregular cycle
CPT/HCPCS: 36415; 80053; 85025

== ENCOUNTER 2025-06-07 08:55 | Emergency (ER) | payer OTHER, SELFPAY ==
[2025-06-07 08:59] VITALS: PULSE 107; RESP 20; TEMP 36.6; O2SAT 96; BMI 25.2
--- NOTE | 2025-06-07 09:10 | DI.CT.S_ITS ---
PROCEDURE: CT ANGIO ABD/PEL GI BLEED
--- NOTE | 2025-06-07 09:11 | ED_ITS ---
HPI - GI Bleed
--- NOTE | 2025-06-07 09:11 | ED.GIBLEED ---
HPI - GI Bleed General Chief complaint: GI Bleed Stated complaint: Sent from [facility] Stomach pain 5 days Time Seen by Provider: 06/07/25 08:57 Source: patient Mode of arrival: Ambulatory History of Present Illness HPI Narrative: 34-year-old female history of external hemorrhoids presents with lower abdominal pain ongoing for the past 5 days presents with with bloody mucousy discharge sent over here from urgent care. Patient has been reporting dizzy and nausea but denies any chest pain shortness of breath but she has been using ibuprofen the last 2 days. No history of irritable bowel syndrome Crohn's disease ulcerative colitis and no history of colonoscopy endoscopy. Other than what is stated 14 point review system is negative. Related Data Previous Rx's ?Medication ?Instructions ?Recorded ciprofloxacin HCl 500 mg tablet 500 mg PO BID 7 days #14 tabs 06/07/25 (Cipro) hydrocodone 5 mg-acetaminophen 325 1 tab PO Q4-6H PRN pain #20 tabs 06/07/25 mg tablet metronidazole 500 mg tablet 500 mg PO Q8H 7 days #21 tabs 06/07/25 Allergies Allergy/AdvReac Type Severity Reaction Status Date / Time No Known Drug Allergies Allergy Verified 06/07/25 08:59 Review of Systems Review of Systems ROS Unobtainable: All systems reviewed & are unremarkable except as noted in HPI and below Patient History Medical History (Updated 06/07/25 @ 11:34 by Markie Greenwood DO) Normal spontaneous vaginal delivery (~11/02/21) Abdominal bloating (10/2019) Mucous in stools (10/2019) Change in bowel habits (10/2019) Abdominal pain (10/2019) Surgical History Anesthesia [place] teeth removed (~2016) Family History (Updated 12/12/23 @ 13:09 by Yuki Alonso RN) Father History of heart disease Mental health problem H/O heart bypass surgery Depression Grandmother Alzheimer disease Cardiac arrhythmia Grandfather Myocardial infarction Grandmother Stroke Grandfather Family estrangement History of ETOH abuse Mother History of ETOH abuse Family/Other Alzheimer disease Brother Abdominal obesity Acute alcohol abuse Sleep apnea Social History marital status: number of children: 1 household members: spouse lives independently: Yes caregiver/support person: Yes housing: house pets and animals: Yes (Dog) education level: college (Associate's Degree ) occupational status: employed ([employer]) current occupational exposures/hazards: No special jose needs: No travel history: over 6 months ago seatbelt use: always helmet use: Yes water heater temp set < 120 deg: Yes working smoke detector in home: Yes fire extinguisher in home: Yes carbon monox detector in home: Yes firearms in home: No do you feel safe at home: Yes Smoking Status: Never smoker second hand exposure: No alcohol intake: former (rarely when not ) substance use type: does not use during the past year weight has: remained stable well-balanced diet: daily or most days daily servings fruits/ve or more times/day caffeine: Yes (AM cup coffee) Type(s) of exercise: aerobic, regular exercise and weight lifting Smoking Status: Never smoker Exam Narrative Exam Narrative: GENERAL: [34] year old patient appears stated age. Well-developed patient, in mild distress. HEAD: Atraumatic. Normocephalic. EYES: Pupils equal round and reactive. Extraocular motions intact. No scleral icterus. No injection or drainage. NECK: Trachea midline. Non tender CARDIOVASCULAR: Regular rate and rhythm without murmurs, gallops, or rubs. RESPIRATORY: Clear to auscultation. Breath sounds equal bilaterally. No wheezes, rales, or rhonchi. GASTROINTESTINAL: Abdomen soft, non-tender, nondistended. Rectal: External hemorrhoids no signs of thrombus, no fissures, guaiac negative EXTREMITIES: No edema or joint tenderness. BACK: Nontender without deformity or crepitance. No flank tenderness. NEURO: AOx3. SKIN: No rash or erythema of visible areas Initial Vital Signs Initial Vital Signs: Vital Signs Temperature 97.8 F 06/07/25 08:59 Pulse Rate 107 H 06/07/25 08:59 Respiratory Rate 20 06/07/25 08:59 Pulse Oximetry 96 06/07/25 08:59 Oxygen Delivery Method Room Air 06/07/25 08:59 Course Orders Ordered: Discontinued Medications Hydrocodone Bitart/Acetaminophen (Hydrocodone/Acet 5/325 Tablet) 1 tab PO NOW ONE Stop: 06/07/25 11:31 Last Admin: 06/07/25 11:54 Dose: 1 tab Documented By: MS Ciprofloxacin (Ciprofloxacin 250 Mg Tablet) 500 mg PO NOW ONE Stop: 06/07/25 11:31 Last Admin: 06/07/25 11:53 Dose: 500 mg Documented By: MS Lactated Ringer's (Lactated Ringers) 1,000 mls @ 1,000 mls/hr IV BOLUS ONE Stop: 06/07/25 10:11 Last Admin: 06/07/25 12:12 Dose: Not Given Documented By: MS Metronidazole (Metronidazole 500 Mg Tablet) 500 mg PO NOW ONE Stop: 06/07/25 11:31 Last Admin: 06/07/25 11:54 Dose: 500 mg Documented By: MS Ondansetron HCl (Ondansetron 4 Mg/2 Ml Inj) 4 mg IV NOW PRN PRN Reason: Nausea And Vomiting Last Admin: 06/07/25 11:59 Dose: 4 mg Documented By: MS Ondansetron HCl (Ondansetron 4 Mg Odt) 4 mg PO NOW PRN PRN Reason: Nausea And Vomiting Pantoprazole Sodium (Pantoprazole 40 Mg Vial) 40 mg IV NOW ONE Stop: 06/07/25 09:13 Last Admin: 06/07/25 10:20 Dose: 40 mg Documented By: RB Vital Signs Vital signs: Vital Signs - 8 hr 06/07/25 08:59 Temperature 97.8 F Pulse Rate 107 H Respiratory Rate 20 Pulse Oximetry 96 Oxygen Delivery Method Room Air MDM - GI Bleed Lab Data 06/07/25 09:15 06/07/25 09:15 Labs: Lab Results 06/07/25 06/07/25 Range/Units 09:15 09:25 WBC 13.5 H (4.5-11.0) X10^3/uL RBC 4.85 (4.0-5.2) X10^6/uL Hgb 13.8 (12.0-16.0) g/dL Hct 42.2 (36-46) % MCV 87.0 (80-100) fL MCH 28.4 (26-34) PG MCHC 32.7 (30-36) % RDW 13.4 (11.6-14.8) % Plt Count 269 (150-400) X10^3/uL Neut % (Auto) 89.0 H (50-75) % Lymph % (Auto) 7.9 L (25-40) % [place] % (Auto) 2.7 L (3-14) % Eos % (Auto) 0.2 L (2-4) % Baso % (Auto) 0.2 (0-2) % Neut # (Auto) 00155 H (4212-2540) /uL Lymph # (Auto) 1100 (2873-7727) /uL [place] # (Auto) 400 (0-900) /uL Eos # (Auto) 0 (0-450) /uL Baso # (Auto) 0 (0-100) /uL Sodium 138 (137-145) mmol/L Potassium 4.4 (3.4-5.1) mmol/L Chloride 107 (98-107) mmol/L Carbon Dioxide 23 (22-32) mmol/L BUN 10 (7-17) mg/dL Creatinine 0.57 (0.52-1.04) mg/dL Estimated GFR > 60 (>60) mL/min BUN/Creatinine Ratio 17.5 (6-22) Glucose 115 H (70-99) mg/dL Calcium 8.9 (8.4-10.2) mg/dL Total Bilirubin 0.3 (0.2-1.3) mg/dL AST 23 (14-36) IU/L ALT 14 (<35) IU/L Alkaline Phosphatase 83 (38-126) U/L Total Protein 7.4 (6.3-8.2) g/dL Albumin 4.4 (3.5-5.0) g/dL Globulin 3.0 (1.7-4.1) g/dL Albumin/Globulin Ratio 1.5 (1.0-2.8) Lipase 64 (23-300) U/L Urine RBC 0-1/hpf (0-5/HPF) Urine WBC 1-5/hpf (0-5/HPF) Ur Squamous Epith Cells 1-5 /hpf (0-5/HPF) Urine Bacteria Few (2-10) H (None) Ur Culture Indicated? Vol Urine Centrifuged 10ml (spun) Point of Care Testing Test Results Negative Stool Occult Blood Negative Urine Dip Bedside Urine Glucose Negative Bedside Urine Bilirubin - Negative Bedside Urine Ketone - Negative Urine Specific [place] 1.015 Bedside Urine Occult Blood - Negative Bedside Urine pH 6.0 Bedside Urine Protein - Negative Bedside Urine Urobilinogen 0.2 Bedside Urine Nitrite - Negative Bedside Urine Leukocytes ++ [address] scan - abdomen/pelvis: Radiologist's Impression: [address] [address] [address] Scan Report Signed Patient: Yisel Quintana MR#: [id number] : 1990 Acct:[id number] Age/Sex: 34 / F Date of Service: 06/07/25 Loc: ED Accession Number: [id number] Procedure: CT angio Abd/Pel GI Bleed Ordering Provider: Markie Greenwood D.O. PROCEDURE: CT ANGIO ABD/PEL GI BLEED INDICATIONS: GI Bleed TECHNIQUE: After the administration of intravenous contrast, 2.5 mm thick sections acquired from the diaphragm to the symphysis. 10 mm maximum-intensity projection (MIP) reformats were then acquired. For radiation dose reduction, the following was used: automated exposure control. COMPARISON: None. FINDINGS: Image Quality: Diagnostic. Abdominal aorta: No aortic aneurysm or evidence of acute aortic syndrome. Mesenteric arteries: Patent without hemodynamically significant stenosis. Renal arteries: Patent without hemodynamically significant stenosis. OTHER: Lower Chest: No significant findings. Liver: No solid mass. Gallbladder: No radiopaque gallstones or wall thickening. Biliary ducts: No biliary dilation. Pancreas: No ductal dilation. Spleen: Size is within normal limits. Adrenal Glands: No adrenal nodules. Kidneys and Ureters: No hydronephrosis. No solid mass. No complex renal cystic lesion which requires follow up. Stomach and Bowel: Portions of the transverse as well as descending colon. No abscess. No appreciable diverticula. No areas of contrast extravasation or pooling. Peritoneum: No abnormal intraperitoneal fluid. No free air. Ventral Wall: No hernia. Abdominal Nodes: No retroperitoneal or mesenteric adenopathy by size criteria. Vessels: Aorta and inferior vena cava are normal in size. PELVIS: Pelvic Organs: Unremarkable. Bladder: Unremarkable. Pelvic Nodes: No enlarged lymph nodes. Miscellaneous: No inguinal hernias are seen. Bones: No aggressive osseous abnormality. IMPRESSION: Transverse and left colon colitis secondary to infection/inflammation given lack of diverticula. No abscess. No identified source of focal hemorrhage. Dictated by: Lilly Apple M.D. on 06/07/2025 at 10:05 Approved by: Lilly Apple M.D. on 06/07/2025 at 10:07 [facility] Narrative Medical decision making narrative: All lab work, vital signs, nurse triage note, medication list, previous ER visits, and all imaging studies reviewed. CT abdomen showed transverse and left colon colitis secondary to infection inflammation given lack of diverticular. . No abscess no identified source of focal hemorrhage. WBC 13.5 hemoglobin 13.8 platelets 269 sodium 138 potassium 4 point 107 CO2 23 BUN 10 creatinine 0.57 glucose 115 LFTs normal lipase 64 urine showed +2 bacteria. Patient given Cipro Flagyl and [place] here and will be discharged on 3 medications. Differential diagnosis diverticulitis, pancreatitis, kidney stone, kidney infection, constipation, obstruction, UTI. Discharge Plan Departure Patient Disposition: Home Clinical Impression: Colitis Instructions: DI for Colitis Activity Restrictions/Additional Instructions: Return with new or worsening symptoms. Take medicines as directed. Keep hydrated. Clear liquid diet advance as tolerated. Follow up PCP in 1-2 weeks if no improvement in symptoms. Prescriptions: New ciprofloxacin HCl [Cipro] 500 mg tablet 500 mg PO BID 7 Days Qty: 14 0RF hydrocodone-acetaminophen 5-325 mg tablet 1 tab PO Q4-6H PRN (Reason: pain) Qty: 20 0RF metronidazole 500 mg tablet 500 mg PO Q8H 7 Days Qty: 21 0RF Referrals: Colt Romano MD [Primary Care Provider, Family Practice] Stand Alone Forms: Patient Portal/API
[2025-06-07 09:27] LABS: Add Manual Diff / Slide Review NO; Hematocrit 42.2 % (36-46); Hemoglobin 13.8 g/dL (12.0-16.0); Lymphocytes Absolute Auto 1100 /uL (1100-4500); Mean Corpuscular HGB Conc 32.7 % (30-36); Mean Corpuscular Hemoglobin 28.4 PG (26-34); Mean Corpuscular Volume 87.0 fL (80-100); Platelet Count 269 X10^3/uL (150-400)
[2025-06-07 09:48] LABS: Alanine Aminotransferase 14 IU/L (<35); Albumin 4.4 g/dL (3.5-5.0); Albumin Globulin Ratio 1.5 (1.0-2.8); Alkaline Phosphatase 83 U/L (38-126); Blood Urea Nitrogen 10 mg/dL (7-17); Calcium 8.9 mg/dL (8.4-10.2); Carbon Dioxide 23 mmol/L (22-32); Chloride 107 mmol/L (98-107); Estimated Glomerular Filt Rate > 60 mL/min (>60); Globulin 3.0 g/dL (1.7-4.1); Glucose 115 mg/dL (70-99); HEMOLYSIS < 15 (0-50); Lipase 64 U/L (23-300); Potassium 4.4 mmol/L (3.4-5.1); Sodium 138 mmol/L (137-145); Total Protein 7.4 g/dL (6.3-8.2)
[2025-06-07] MEDS: PANTOPRAZOLE 40 MG VIAL IV (10:20)
[2025-06-07] MEDS: CIPROFLOXACIN 250 MG TABLET 500 MG PO (11:53)
[2025-06-07] MEDS: ONDANSETRON 4 MG/2 ML INJ IV (11:59)
[2025-06-07 12:02] VITALS: BP 95/52; PULSE 87; RESP 17; TEMP 37; O2SAT 98
[2025-06-07 12:38] VITALS: BP 96/62; O2SAT 97
== END 2025-06-07 12:50 | disposition home or self-care (01) ==
PROVIDERS: Emergency Provider Family Medicine; PCP Family Medicine
DX: K52.9 Noninfective gastroenteritis and colitis, unspecified (principal); R42 Dizziness and giddiness; R11.0 Nausea
CPT/HCPCS: 36415; 74174; 80053; 81003; 81015; 81025; 82272; 83690; 85025; 87086; 96374; 96375; 99284; J2405; J2470; Q9967

== ENCOUNTER → 2025-06-10 15:52 | Outpatient (CLI) | payer OTHER, SELFPAY ==
[2025-06-10 16:33] LABS: Add Manual Diff / Slide Review NO; Hematocrit 39.3 % (36-46); Hemoglobin 12.9 g/dL (12.0-16.0); Lymphocytes Absolute Auto 1500 /uL (1100-4500); Mean Corpuscular HGB Conc 32.8 % (30-36); Mean Corpuscular Hemoglobin 28.6 PG (26-34); Mean Corpuscular Volume 87.2 fL (80-100); Platelet Count 264 X10^3/uL (150-400)
[2025-06-10 20:32] LABS: Alanine Aminotransferase 13 IU/L (<35); Albumin 3.9 g/dL (3.5-5.0); Albumin Globulin Ratio 1.5 (1.0-2.8); Alkaline Phosphatase 62 U/L (38-126); Blood Urea Nitrogen 13 mg/dL (7-17); Calcium 8.9 mg/dL (8.4-10.2); Carbon Dioxide 27 mmol/L (22-32); Chloride 104 mmol/L (98-107); Estimated Glomerular Filt Rate > 60 mL/min (>60); Globulin 2.6 g/dL (1.7-4.1); Glucose 121 mg/dL (70-99); HEMOLYSIS < 15 (0-50); Potassium 4.4 mmol/L (3.4-5.1); Sodium 140 mmol/L (137-145); Total Protein 6.5 g/dL (6.3-8.2)
== END ==
PROVIDERS: PCP Family Medicine; Referring Provider Specialist; Visit Provider Specialist
DX: R19.7 Diarrhea, unspecified (principal)
CPT/HCPCS: 36415; 80053; 85025; 85651; 86140

== ENCOUNTER → 2025-06-11 10:49 | Outpatient (CLI) | payer OTHER, SELFPAY ==
[2025-06-13 13:10] LABS: Salmonella/Shigella Screen Final report (.)
[2025-06-13 15:12] LABS: E coli Shiga Toxin EIA Negative (Negative)
== END ==
PROVIDERS: PCP Family Medicine; Referring Provider Family Medicine; Visit Provider Specialist
DX: R19.7 Diarrhea, unspecified (principal)
CPT/HCPCS: 83993; 87045; 87177